=== PATIENT | male | born 1955 | race Caucasian/White ===

== ENCOUNTER → 2017-01-20 13:08 | Outpatient (CLI) | payer MEDICAID ==
[2013-09-27 13:53] VITALS: BMI 31.5
[~2017-01-20 13:08] MED LIST: ALTACE5 MG PO; BACTRIM DS TABL1 TAB PO; BAYER CHEWABLE81 MG PO; COREG 3.1253.125 MG PO; GLUCOPHAGE500 MG PO; LISINOPRIL2.5 MG PO; LOPRESSOR50 MG PO; METHADOSE10 MG PO; MIRALAX17 GM PO; MOTRIN800 MG PO; NORCO 10/325 TA1 TA1 PO; PLAVIX75 MG PO; PRAVACHOL20 MG PO
[2017-01-20 14:01] LABS: INR 1.54 (0.85-1.17); PROTIME 18.4 SECONDS (11.6-15.0)
[2017-01-20 14:35] LABS: ANION GAP 16.2 mmol/L (8-16); CALCIUM 10.9 mg/dL (8.5-10.1); CARBON DIOXIDE 30.1 mmol/L (21.0-32.0); CREATININE - SERUM 1.6 mg/dL (0.6-1.3); POTASSIUM - SERUM 3.3 mmol/L (3.5-5.1)
== END | disposition home or self-care (01) ==
LOC: D.LABREF 13:08
PROVIDERS: Internal Medicine
DX: I50.43 Acute on chronic combined systolic (congestive) and diastolic (congestive) heart failure (principal); M62.81 Muscle weakness (generalized); M62.838 Other muscle spasm; Z79.01 Long term (current) use of anticoagulants

== ENCOUNTER → 2017-01-25 10:52 | Outpatient (CLI) | payer MEDICAID ==
[2013-09-27 13:53] VITALS: BMI 31.5
[2017-01-25 12:22] LABS: INR 2.73 (0.85-1.17); PROTIME 29.1 SECONDS (11.6-15.0)
[2017-01-25 12:29] LABS: ANION GAP 10.8 mmol/L (8-16); CALCIUM 9.5 mg/dL (8.5-10.1); CARBON DIOXIDE 34.5 mmol/L (21.0-32.0); CREATININE - SERUM 1.7 mg/dL (0.6-1.3); POTASSIUM - SERUM 3.3 mmol/L (3.5-5.1)
== END | disposition home or self-care (01) ==
LOC: D.LABREF 10:52
PROVIDERS: Internal Medicine
DX: I50.43 Acute on chronic combined systolic (congestive) and diastolic (congestive) heart failure (principal); E11.21 Type 2 diabetes mellitus with diabetic nephropathy; Z79.01 Long term (current) use of anticoagulants; E87.6 Hypokalemia

== ENCOUNTER → 2017-03-29 15:45 | Outpatient (CLI) | payer MEDICAID ==
[2013-09-27 13:53] VITALS: BMI 31.5
[2017-03-29 16:17] LABS: INR 2.26 (0.85-1.17); PROTIME 25.1 SECONDS (11.6-15.0)
[2017-03-29 16:25] LABS: ANION GAP 13.9 mmol/L (8-16); CALCIUM 9.4 mg/dL (8.5-10.1); CARBON DIOXIDE 30.9 mmol/L (21.0-32.0); CREATININE - SERUM 1.3 mg/dL (0.6-1.3); POTASSIUM - SERUM 3.8 mmol/L (3.5-5.1)
== END | disposition home or self-care (01) ==
LOC: D.LABREF 15:45
PROVIDERS: Internal Medicine
DX: I50.9 Heart failure, unspecified (principal); Z79.01 Long term (current) use of anticoagulants

== ENCOUNTER → 2017-05-11 12:17 | Outpatient (CLI) | payer MEDICAID ==
[2013-09-27 13:53] VITALS: BMI 31.5
[2017-05-11 13:25] LABS: BASOPHILS 0.7 % (0-2); EOSINOPHILS 6.1 % (0-7); HEMATOCRIT 41.6 % (42.0-54.0); IMMATURE GRANULOCYTES 0.4 % (0-5); LYMPHOCYTES 22.2 % (15-50); MCH 30.5 pg (26.0-34.0); MCHC 33.7 g/dL (31.0-37.0); MCV 90.6 fL (80.0-100.0); MEAN PLATELET VOLUME 10.8 fL (7.4-10.4); MONOCYTES 10.1 % (2-11); NEUTROPHILS 60.5 % (40-80); RBC 4.59 10x6/uL (4.20-6.10); RDW 13.4 % (11.5-14.5); WBC 4.5 10x3/uL (4.8-10.8)
[2017-05-11 13:37] LABS: PLATELET COUNT 177 10x3/uL (130-400)
[2017-05-11 13:56] LABS: ANION GAP 10.7 mmol/L (8-16); CALCIUM 9.4 mg/dL (8.5-10.1); CARBON DIOXIDE 31.3 mmol/L (21.0-32.0); CREATININE - SERUM 1.3 mg/dL (0.6-1.3); VANCOMYCIN - TROUGH 18.8 ug/mL (10.0-20.0)
== END | disposition home or self-care (01) ==
LOC: D.LABREF 12:17
PROVIDERS: Internal Medicine
DX: Z51.81 Encounter for therapeutic drug level monitoring (principal); Z79.2 Long term (current) use of antibiotics; Z98.890 Other specified postprocedural states; I50.9 Heart failure, unspecified

== ENCOUNTER → 2017-05-18 13:04 | Outpatient (CLI) | payer MEDICAID ==
[2013-09-27 13:53] VITALS: BMI 31.5
[2017-05-18 14:43] LABS: BASOPHILS 1.3 % (0-2); EOSINOPHILS 6.1 % (0-7); HEMATOCRIT 40.5 % (42.0-54.0); HEMOGLOBIN 13.5 g/dL (13.5-17.5); IMMATURE GRANULOCYTES 0.3 % (0-5); LYMPHOCYTES 23.2 % (15-50); MCH 30.4 pg (26.0-34.0); MCHC 33.3 g/dL (31.0-37.0); MCV 91.2 fL (80.0-100.0); MEAN PLATELET VOLUME 10.6 fL (7.4-10.4); MONOCYTES 13.1 % (2-11); PLATELET COUNT 221 10x3/uL (130-400); RBC 4.44 10x6/uL (4.20-6.10); RDW 13.4 % (11.5-14.5); WBC 6.3 10x3/uL (4.8-10.8)
[2017-05-18 14:51] LABS: INR 2.19 (0.85-1.17); PROTIME 24.4 SECONDS (11.6-15.0)
[2017-05-18 14:57] LABS: ANION GAP 14.1 mmol/L (8-16); CARBON DIOXIDE 30.2 mmol/L (21.0-32.0); CREATININE - SERUM 1.9 mg/dL (0.6-1.3); POTASSIUM - SERUM 4.3 mmol/L (3.5-5.1); VANCOMYCIN - TROUGH 28.4 ug/mL (10.0-20.0)
== END | disposition home or self-care (01) ==
LOC: D.LABREF 13:04
PROVIDERS: Internal Medicine
DX: Z51.81 Encounter for therapeutic drug level monitoring (principal); Z79.2 Long term (current) use of antibiotics; Z79.01 Long term (current) use of anticoagulants

== ENCOUNTER → 2017-05-22 12:55 | Outpatient (CLI) | payer MEDICAID ==
[2013-09-27 13:53] VITALS: BMI 31.5
[2017-05-22 15:44] LABS: ALBUMIN 4.2 g/dL (3.4-5.0); ANION GAP 14.7 mmol/L (8-16); BILIRUBIN - DIRECT 0.21 mg/dL (0.00-0.30); BILIRUBIN - TOTAL 0.49 mg/dL (0.2-1.3); CALCIUM 9.7 mg/dL (8.5-10.1); CARBON DIOXIDE 31.5 mmol/L (21.0-32.0); POTASSIUM - SERUM 4.2 mmol/L (3.5-5.1); PROTEIN - SERUM 7.9 g/dL (6.4-8.2); VANCOMYCIN - TROUGH 9.9 ug/mL (10.0-20.0)
== END | disposition home or self-care (01) ==
LOC: D.LABREF 12:55
PROVIDERS: Internal Medicine
DX: Z51.81 Encounter for therapeutic drug level monitoring (principal); Z79.2 Long term (current) use of antibiotics

== ENCOUNTER 2018-07-15 03:29 | Emergency (ER) | payer MEDICAID ==
[~2018-07-15] VITALS: Ht 182.9 cm; Wt 103.2 kg
[2018-07-15 03:30] VITALS: Ht 182.9 cm; Wt 103.2 kg
[2018-07-15 04:20] LABS: BASOPHILS 0.2 % (0-2); EOSINOPHILS 0.7 % (0-7); HEMATOCRIT 27.7 % (42.0-54.0); HEMOGLOBIN 8.9 g/dL (13.5-17.5); IMMATURE GRANULOCYTES 0.9 % (0-5); LYMPHOCYTES 9.1 % (15-50); MCH 25.9 pg (26.0-34.0); MCHC 32.1 g/dL (31.0-37.0); MCV 80.5 fL (80.0-100.0); MEAN PLATELET VOLUME 10.6 fL (7.4-10.4); MONOCYTES 5.3 % (2-11); NEUTROPHILS 83.8 % (40-80); PLATELET COUNT 186 10x3/uL (130-400); RBC 3.44 10x6/uL (4.20-6.10); RDW 14.4 % (11.5-14.5); WBC 10.7 10x3/uL (4.8-10.8)
[2018-07-15 04:43] LABS: ALBUMIN 2.9 g/dL (3.4-5.0); ALKALINE PHOSPHATASE 172 U/L (46-116); ALT (SGPT) 35 U/L (10-68); BILIRUBIN - TOTAL 0.47 mg/dL (0.2-1.3); CALC OSMOLALITY 287 mosm/kg (275-300); CARBON DIOXIDE 19.4 mmol/L (21.0-32.0); CHLORIDE - SERUM 103 mmol/L (98-107); CREATININE - SERUM 2.9 mg/dL (0.6-1.3); GLUCOSE 122 mg/dL (74-106); POTASSIUM - SERUM 4.9 mmol/L (3.5-5.1); PROTEIN - SERUM 6.1 g/dL (6.4-8.2); SODIUM 136 mmol/L (136-145); UREA NITROGEN 55 mg/dL (7-18); eGFR NON AFRICAN AMERICAN 23 mL/min (90-120)
[2018-07-15 04:50] LABS: CREATINE KINASE 65 UL (21-232); MAGNESIUM - SERUM 1.5 mg/dL (1.8-2.4)
[2018-07-15 04:53] LABS: APTT 27.8 SECONDS (22.8-39.4); INR 1.17 (0.85-1.17); PROTIME 14.4 SECONDS (11.6-15.0)
[2018-07-15 05:02] LABS: TROPONIN-I < 0.017 ng/mL (0.000-0.060)
[2018-07-15 07:30] VITALS: BP 112/70
== END 2018-07-15 07:30 | disposition short-term general hospital (02) ==
LOC: D.ER 03:29
PROVIDERS: Family Medicine
DX: R07.9 Chest pain, unspecified (principal); D64.9 Anemia, unspecified; R50.9 Fever, unspecified; Z94.1 Heart transplant status; E83.42 Hypomagnesemia; E11.9 Type 2 diabetes mellitus without complications; I10 Essential (primary) hypertension